=== PATIENT | female | born 1995 ===

== ENCOUNTER 2023-09-21 10:18 | Outpatient (CLI) | payer OTHER, SELFPAY ==
--- NOTE | ~2023-09-21 | US_ITS ---
EXAMINATION: US pelvic complete w TV DATE: 09/21/2023 11:05 INDICATION: OVARIAN CYST TECHNIQUE: Multiple transabdominal and endovaginal sonographic images of the pelvis were obtained. COMPARISON: None. FINDINGS: Uterus: 7.0 x 4.2 x 5.3 cm. Retroflexed. Endometrial complex measures 10 mm. Right Ovary: 2.1 x 2.0 x 1.6 cm. Vascular flow is present. Somewhat lobulated 7 mm hypoechogenicity, either representing 2 small adjacent lesions or a single lesion with a thin septum. Question of mild vascular flow versus motion artifact. Left Ovary: 2.5 x 1.5 x 1.4 cm. Vascular flow is present. Smoothly marginated nonsimple cyst with mix ed echogenicity internal debris that appears to be layering. There is no free fluid in the pelvis. IMPRESSION: 1.5 cm presumed hemorrhagic cyst in the left ovary. 7 mm likely involuting follicle in the right ovar y. Recommend follow-up endovaginal ultrasound in 2-6 months to evaluate for persistence and/or interv al change. Reviewed, dictated and finalized at location [facility]. IMPRESSION: 1.5 cm presumed hemorrhagic cyst in the left ovary. 7 mm likely involuting foll icle in the right ovary. Recommend follow-up endovaginal ultrasound in 2-6 tommy hs to evaluate for persistence and/or interval change.
== END 2023-09-21 10:19 | disposition home or self-care (01) ==
DX: N83.202 Unspecified ovarian cyst, left side (principal)
CPT/HCPCS: 76830; 76856

== ENCOUNTER 2024-02-18 09:45 | Outpatient (RCR) | payer OTHER, SELFPAY ==
[2024-02-18 10:47] LABS: Beta HCG Quantitative < 2.39 mIU/ML
== END 2024-05-18 23:59 | disposition home or self-care (01) ==
LOC: ANHLAB 09:45
PROVIDERS: Visit Provider Obstetrics & Gynecology
DX: O20.0 Threatened abortion (principal); Z3A.00 Weeks of gestation of pregnancy not specified
CPT/HCPCS: 36415; 84702; 85461; 86850; 86900; 86901

== ENCOUNTER 2024-04-06 11:35 | Outpatient (CLI) | payer OTHER, SELFPAY ==
[2024-04-06 13:17] LABS: Beta HCG Quantitative < 2.39 mIU/ML
--- OUTSIDE RECORDS SUMMARY | 2024-04-09 13:04 | XMS_ITS | Clinical Summary ---
Author Organization [facility] Care Team Providers Care Board Handler Name Role Phone Unavailable Primary Care Provider Unavailabl e Social History Tobacco Use Types Packs/Day Years Used Date Smoking Tobacco: Never Assessed Comments Unknown Sex and Gender Information Value Date Recorded Sex Assigned at Not on file Legal Sex Female 11:40 AM [employer] Gender Identity Not on file Sexual Orientation Not on file Plan of Treatment Health Maintenance Due Date Last Done Comments Hepatitis C Virus (HCV) Screening 1994 TdaP Immunization 1994 Hepatitis B Immunization (1 of 3 - 19+ 3-dose series) 2013 Pap Smear 07/05/2015 Influenza Immunization (#1) 2023 SARS-COV-2 Immunization ( - 2023- season) 2023 Respiratory Syncytial Virus (RSV) Immunization (Adult) (1 - 1-dose 75+ series) 2069 Meningococcal Immunization (ACWY) Aged Out No longer eligible based on patient's age to complete this topic Pneumococcal Immunization Combined Aged Out No longer eligible based on patient's age to complete this topic Rotavirus Immunization Aged Out No lo nger eligible based on patient's age to complete this topic
--- OUTSIDE RECORDS SUMMARY | 2024-04-09 13:04 | XMS_ITS | Data Portability ---
Author Organization [facility] [place] Address [address] [place] [address] [place] [address] Assessment No assessment recorded. Plan of Treatment Reminders Order Date Submit Date Provider Last Modified By Organization Details Last Modified Time Details Appointments None recorded. Lab None recorded. Referral None recorded. Procedures None recorded. Surgeries None recorded. Imaging US, transvagina l 2023 ELISABETH [place], [address], [address], [place], [address], 17:52:01 US, saline infused uterus 2023 [place], [address], [place], [address], 11:02:50 Medication Orders None recorded. Patient TargetsNo targets recorded. Patient InstructionsNo instructions recorded. Reason for Referral None Reported. Results Created Date Observation Date Name Description Value Unit Range Abnormal Flag Note LastModifiedBy Organization Detail LastModifiedTime 12/30/1912/30/2023 US, trans vagin al No observ ation record ed. [email or web address] [place] [address], [place], [address], 12/30/2023 18:07:33 12/30/1912/30/2023 US, trans vagin al No observ ation record ed. ELISABETH [facility] [address], [place], [address], 12/31/2023 12:00:12 Result Notes None recorded. Procedures Surgical History Date Name Laterality Status Provider Name and Address Organization Details Recorded Time 4 SIS completed DEE BRENNAN MD [address], [place], [address], [place] [facility] 12/30/2023 15:12:58 3 Date of Last Pap Smear completed [facility] 11/20/2023 11:56:06 2 Caesarean Section completed [facility] 11/20/2023 11:48:52 Imaging Results Imaging Date Name Status LastModified by Organization Details LastModified Time 12/30/2023 US, transvaginal completed [email or web address] [facility] [address], [place], [address], 12/30/2023 18:07:33 12/30/2023 US, transvaginal completed ELISABETH [facility], [place], [address], 12/31/2023 12:00:12 Procedure Notes None recorded. Medical Equipment None Reported. Allergies No known drug allergies Medications Name Sig Start Date Stop Date Status Note LastModified by Organization Details LastModified Time azithromycin 250 mg tablet TAKE 2 TABLETS BY MOUTH TODAY, THEN TAKE 1 TABLET DAILY FOR 4 DAYS DIRECTED active Not Available Not Available No t Available Clomid 50 mg tablet Take 1 tablet every day by oral route. active Not Available Not Available No t Available Vitals Date Recorded Body weight Body mass index (BMI) Body height Systolic blood pressure Diastolic blood pressure Provider Name and Address Organization Details Last Updated DateTime 11/20/2023 64817.57 g 24.5 kg/m2 170.18 cm 118 mm[Hg] 72 mm[Hg] [facility] 11:54:02 Date Recorded Body height Provider Name an d Address Organization Details Last Updated DateTime 12/30/2023 170.18 cm Chemo [facility] [address], [place], [address], [place] - [facility] 12/30/2023 15:05:37 Social History Question Answer Notes LastModified by Organizat ion Details LastModified Time What Is Your Level Of Alcohol Consumption? None Information not available 11/20/2023 Are You Blind Or Do You Have Difficulty Seeing? No Information n ot available 11/20/2023 What Is Your Level Of Caffeine Consumption? Occasional Information not available 11/20/2023 In The 14 Days Before Symptom Onset, Have You Had Close Contact With A Laboratory-confirm ed COVID-19 While That Case Was Ill? No Information n ot available 11/20/2023 In The 14 Days Before Symptom Onset, Have You Had Close Contact With A Person Who Is Under Investigation For COVID-19 While That Person Was Ill? No Information not available 11/20/2023 Have You Been To An Area Known To Be High Risk For COVID-19? No Information not available 11/20/2023 Are You Deaf Or Do You Have Serious Difficulty Hearing? No Information not available 11/20/2023 What Type Of Diet Are You Following? REGULAR Information n ot available 11/20/2023 What Is The Highest Grade Or Level Of School You Have Completed Or The Highest Degree You Have Received? [id number] Information not available 11/20/2023 What Is Your Occupation? None Information not available 11/20/2023 Are There Any Guns Present In Your Home? Yes Information not available 11/20/2023 Do You Use Protection During Sex? No Information not available 11/20/2023 Do You Use Your Seat Belt Or Car Seat Routinely? Yes Information not available 11/20/2023 Do You Have Smoke And Carbon Monoxide Detectors In Your Home? Yes Information not available 11/20/2023 How Much Tobacco Do You Smoke? No Information not available 11/20/2023 Do You Feel Stressed (tense, Restless, Nervous, Or Anxious, Or Unable To Sleep At Night)? [id number] Information not available 11/20/2023 Do You Use Any Illicit Or Recreational Drugs? No Information not available 11/20/2023 Do You Use Sunscreen Routinely? Yes Information not available 11/20/2023 Have You Used IV Drugs? No Information not available 11/20/2023 Sex: Unknown Functional Status Question Answer Note LastModified by Organization D etails LastModified Time Are you able to walk? YESWOREST Information not available 11/20/2023 What is your exercise level? Moderate Information not available 11/20/2023 Mental Status None recorded. Family History Relationship Description Onset Age of this Age Resolved Age Notes LastModified by Organization Details LastModified Time Sister Diabetes mellitus [email or web address] Not available 2023 11:48:34 Sister Endometriosi s (clinical) Not available 13:55:31 Mother Endometriosi s (clinical) Not available 13:55:31 Medical History Condition Response Allergies (Food, seasonal, environmental ) N Other N Breast Cancer N Drug/Latex Allergies/Reactions N Blood Transfusion N Dermatologic Disorders N Lung Disease N Defects or Inherited Disease N Breast Problem N Gestational Diabetes N Hematologic disorders N Anesthesia Complications N History of STI N Deep Vein Thrombosis N Polycystic ovary syndrome N Anxiety Disorder N Autoimmune disease N Arthritis N Infertility N Polyps N Acid Reflux (GERD) N History of abnormal pap N Cancer N Stroke N Varicosities N Neurologic/Epilepsy N Endometriosis N High Cholesterol N Headaches N Fibromyalgia N Kidney Disease N Heart Problems N Kidney or Bladder Problems N Thyroid Problems N GI Problems N Eating Disorder N Anemia N Art (IVF or FET) N Psychiatric Illness N Ovarian Cancer N Diabetes N Pulmonary (TB, Asthma) N Hepatitis/Liver Disease N No Past Medical History N Eczema N Urinary Tract Infection N Abuse/Domestic Violence N Asthma N Trauma/Violence N Depression/ depression N Heart Disease N Pre-Eclampsia N Hypertension N Osteoporosis N Thrombophilias N Gynecological History Statement/Question Response Flow Moderate Date of LMP 11/18/2023 On BCP's at Conception? N N Was last menstrual period normal Y STIs/STDs N HPV Vaccine N Duration of Flow (days) 6 Current Control Method Seeking Pre gnancy Sexually Active? Y Age of first menstrual cycle 13 Date of Last Pap Smear 03/18/2022 Sexual Problems? N Desired Control Method Seeking Pre gnancy LMP Definite N Obstetrics History GPAL:G 1 P 1 0 0 1 Type Value Full Term 1 Living 1 Total 1 Past Encounters Encounter ID Performer Location Encounter Start Date Encounter Closed Date Diagnosis/Indication Diagnosis SNOMED-CT Code Diagnosis ICD10 Code Diagnosis Note [id number] DEE BRENNAN MD [place] [address],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 reviewed today;over all normal ovaries, retroverte d uterus with possible isthmocele --Recommen d transvagin al ultrasound with SIS for endometria l cavity assessment and evaluation for possible isthmocele - The patient was asked to have her collect a semen analysis- Discussed the fertile time of the cycle and options for tracking ovulation, including ovulation predictor kits and basal body temperatur e.-- Discussed ovulation induction would be considered only after partner completes semen analysis.- RTC for SIS [id number] [facility] [address],[facility] [place] [address] 12/30/2023 13:55:01 12/30/2023 17:40:07 Female infertility 6935633 N97.9 [id number] DEE BRENNAN MD [place] [address],[place] [address] 12/30/2023 13:55:28 12/30/2023 15:15:12 Secondary infertility [id number] N97.9 - Differenti al diagnosis of cause of infertilit y includes: male factor, anovulatio n, structural - We discussed the potential causes of infertilit y and rationale behind testing.- The patient reports she has completed bloodwork, will upload to portal for review-SIS performed today, will review images and discuss further steps- The patient was asked to have her collect a semen analysis- Discussed the fertile time of the cycle and options for tracking ovulation, including ovulation predictor kits and basal body temperatur e.- patient to call with first day of next cycle to restart clomid 50mg x5 days (CD 5-9) Health Concerns Section Related Observation LastModified by Organization Detai ls LastModified Time None Recorded Concern Status LastModified by Organization Details LastModified Time None Recorded Advance Directives Directive None Recorded Payers Encounter Date Sequence Insurance Name Policy Number Policy Xie Covered Member ID Xie Member ID Guarantor Name 11/20/[address] [facility] [id number] Alvarado Vargheseer [id number] [facility] 12/30/[address] [facility] [id number] Alvarado Vargheseer [id number] Dennise Coel 12/30/[address] [facility] [id number] Alvarado Vargheseer [id number] Dennise Vargheseer Notes Date Note Type Note Provider Name and Address Organization Details Recorded Time 11/20/2023 text/html Presents today f or discussion of infertility. She and her partner have been actively been trying to conceive 12 months. She was previously doing work up with [place], both with bloodwork and ultrasound. Patient reports bloodwork was normal, however not available for review today. Patient to upload to portal. She had repeat US at [place] after moving. She was started on clomid 50mg last month however did not conceive. Did not get 21 day progesterone due to moving. Getting positive OPKs monthly. The patient reports she has regular menstrual periods. She denies a history of extremely painful periods. Previous history includes: FT PCS 2021, for chorioamnionitis at 7cm. Conceived after 4 months. No treatment needed to conceive. Her current partner is the father of her previous child. He denies a history of childhood illnesses or cancers. He reports family history of autism/MR and infertility. He has not completed a semen analysis DEE BRENNAN MD [address], [place], [address], [facility] 11/20/2023 14:51:30 12/30/2023 text/html Patient presents for SIS, 12 month hx of infertility. Previous medical records reviewed, TSH/CBC/CMP wnl. She reports monthly cycles. Hx of c section in previous . Was on clomid x1 month prior to her move to the area. DEE BRENNAN MD [address], [place], [address], [place] [facility] 12/30/2023 15:14:34 OBGyn Episode Ob Episode Information Episode Created Date Number of Fetuses Patient Bloodtype Patient rh Status Prepregnancy Weight lbs Domestic Partner Domestic Partner Phone Father Name [employer]S L[employer] Status 11/20/19 24 1 CLOSED Fetus Data First Name Last Name Admitted to NICU Weight (g) Sex Living Outcome Pediatric Complications Fetus ID Race Codes Race Delivery Type [phone] Full Term [id number] Primary Tomas Calculation Initial Tomas Date Initial Exam Date Initial Exam Provider Initial Ultrasound Date Last Menstrual Period Date Ultra Sound Weeks Gestation 0 Eighteen To Twenty Week Tomas Update Ultra Sound Date Fundal Height At Umbil Quickening Date Ultra Sound Latest Weeks Gestation Final Tomas Confirmed By Final Tomas Confirmed Date Final Tomas Date Ultra Sound Latest Days Gestation 0 0 Menstrual History Last Menstrual Date Menses Monthly On Bcp Conception Prior Menses Frequency Hcg Plus Date Menarche Onset Age Delivery Information Delivery Date Delivery Type Labor Anesthesia Weeks Gestation Incision Type Labor Labor Length Hrs Delivered By Post Complications Tubal Sterilization Discharge Date Comments 2 Discharge Information Feeding Method Contraceptive Method Maternal HG B and HCT Levels
== END 2024-04-06 11:36 | disposition home or self-care (01) ==
PROVIDERS: Visit Provider Obstetrics & Gynecology
DX: N91.2 Amenorrhea, unspecified (principal)
CPT/HCPCS: 36415; 84702